=== PATIENT | female | born 1965 | race Caucasian/White ===

== ENCOUNTER 2023-09-18 04:20 | Day surgery (SDC) | payer BC ==
[2023-09-13 10:00] VITALS: BMI 20.2
[2023-09-18] MEDS ORDERED: BUPIVACAINE HCL/PF 0.5% (5MG/ML) 10 ML VIAL ONE (07:44)
[2023-09-18] MEDS ORDERED: LIDOCAINE HCL 1%, 10 MG/ML (20ML VIAL) ONE ×2 (07:44→10:39)
[2023-09-18] MEDS ORDERED: BACITRACIN ZINC 15 GM TUBE TOPICAL OINTMENT ONE (07:45)
[2023-09-18 09:05] VITALS: RESP 18
[2023-09-18] MEDS: ceFAZolin SODIUM 1 GM VIAL IVPB ONE ×2 (10:46→11:10)
[2023-09-18] MEDS: LIDOCAINE HCL 1%, 10 MG/ML (20ML VIAL) NR ONE ×3 (10:47→11:27)
[2023-09-18] MEDS ORDERED: DEXAMETHASONE SOD PHOSPHATE 4 MG/1 ML VIAL ONE (11:09)
[2023-09-18] MEDS ORDERED: FENTANYL CITRATE/PF 50 MCG/ML VIAL ONE (11:09)
[2023-09-18] MEDS ORDERED: ONDANSETRON 4 MG/2 ML VIAL ONE (11:09)
[2023-09-18] MEDS ORDERED: MIDAZOLAM HCL 2 MG/2 ML SINGLE DOSE VIAL ONE (11:09)
[2023-09-18 12:20] VITALS: BP 112/65; PULSE 74; TEMP 97.1
== END 2023-09-18 12:20 | disposition home or self-care (01) ==
LOC: JASU-SURG 04:20
PROVIDERS: ATTEND Surgery
PROC: 0JB70ZZ Excision of Back Subcutaneous Tissue and Fascia, Open Approach (ICD-10-PCS; principal; 2023-09-18 12:15)
DX: L72.3 Sebaceous cyst (principal)
CPT/HCPCS: 88304-TC